=== PATIENT | female | born 1965 | race Caucasian/White ===

== ENCOUNTER → 2016-05-05 | Outpatient (CLI) | payer BC ==
--- NOTE | 2016-05-08 09:16 | MM ---
Reason for exam: screening (asymptomatic). Last mammogram was performed 1 year and 11 months ago. History: Patient is postmenopausal and had first child at age 33. Benign US right guided VAD of the right breast, September 17, 2009. Physical Findings: A clinical breast exam by your physician is recommended on an annual basis and results should be correlated with mammographic findings. MG Screening Mammo w CAD Bilateral CC and MLO view(s) were taken. Prior study comparison: June 15, 2014, bilateral MG screening mammo w CAD. March 20, 2013, bilateral digital screening mammo w/CAD. The breast tissue is heterogeneously dense. This may lower the sensitivity of mammography. There is no discrete abnormality. No significant changes when compared with prior studies. ASSESSMENT: Negative, BI-RAD 1 RECOMMENDATION: Routine screening mammogram of both breasts in 1 year.
== END | disposition home or self-care (01) ==
LOC: RADMAMWWP 09:22
PROVIDERS: ATTEND Family Medicine
DX: Z12.31 Encounter for screening mammogram for malignant neoplasm of breast (principal)

== ENCOUNTER → 2017-07-07 | Outpatient (CLI) | payer BC ==
--- NOTE | 2017-07-07 23:41 | XR ---
EXAMINATION TYPE: XR lumbar spine 2 or 3V DATE OF EXAM: 07/07/2017 CLINICAL HISTORY: Twisting injury with pain TECHNIQUE: Frontal and lateral images of the lumbar spine are obtained. COMPARISON: None FINDINGS: There are 5 lumbar type vertebral bodies identified. The lumbar spine shows satisfactory alignment without evidence of acute fracture or dislocation. Vertebral body heights are within normal limits. There is moderate to advanced disc space narrowing with endplate sclerosis L5-S1 level. The re is facet arthropathy lower lumbar levels. There is mild overlying vascular calcification noted. IMPRESSION: No acute fracture or dislocation is seen in the lumbar spine.
--- NOTE | 2017-07-07 23:43 | XR ---
EXAMINATION TYPE: XR cervical spine comp DATE OF EXAM: 07/07/2017 TECHNIQUE: Frontal, lateral, oblique, and open mouth view of the cervical spine are obtained. HISTORY: Cervicalgia lifting twisting injury. COMPARISON: None FINDINGS: The cervical spine is visualized in its entirety from C1 thru the top of T1 level, there i s reversal of normal cervical curvature without evidence of acute fracture or dislocation. The pre-v ertebral soft tissue appears within normal limits. The C1-C2 articulation is within normal limits on the open mouth view. Vertebral body heights are maintained. There is moderate to severe disc space n arrowing and mild spurring C4-C5 through C6-C7 levels. The oblique images are within normal limits. T he overlying soft tissues unremarkable. IMPRESSION: Loss of normal cervical curvature with moderate to advanced multilevel degenerative alvarez es C4-C5 through C6-C7 levels noted.
== END | disposition home or self-care (01) ==
LOC: RADXRMAIN 11:10
PROVIDERS: ATTEND Nurse Practitioner Family
DX: M47.812 Spondylosis without myelopathy or radiculopathy, cervical region (principal); M43.9 Deforming dorsopathy, unspecified; M54.5 Low back pain
CPT/HCPCS: 72050; 72100

== ENCOUNTER → 2017-07-17 | Outpatient (CLI) | payer OTHER ==
--- NOTE | 2017-07-17 12:27 | XR ---
EXAMINATION TYPE: XR Hip Complete RT DATE OF EXAM: 07/17/2017 CLINICAL HISTORY: Hip pain after lifting injury. TECHNIQUE: AP and frogleg views of the right hip are obtained. COMPARISON: None. FINDINGS: There is no acute fracture/dislocation evident in the right hip. There is mild to moderate axial joint space loss. There is mild to moderate subchondral cystic change in the acetabulum. The overlying soft tissue appears unremarkable. IMPRESSION: There is no acute fracture or dislocation in the right hip.
--- NOTE | 2017-07-17 12:28 | XR ---
EXAMINATION TYPE: XR thoracic spine 2V DATE OF EXAM: 07/17/2017 CLINICAL HISTORY: Lower back pain after lifting injury TECHNIQUE: Frontal, lateral, and swimmer's view of thoracic spine are obtained. COMPARISON: None. FINDINGS: Thoracic spine show satisfactory alignment without evidence of acute fracture or dislocatio n. Vertebral body heights and disc space heights are preserved. Visualized ribs are unremarkable viktor aterally. IMPRESSION: No acute fracture or dislocation is seen in the thoracic spine.
== END | disposition home or self-care (01) ==
LOC: RADXRMAIN 11:42
PROVIDERS: ATTEND Emergency Medicine
DX: R20.9 Unspecified disturbances of skin sensation (principal); M54.5 Low back pain; M54.14 Radiculopathy, thoracic region
CPT/HCPCS: 72070; 73502

== ENCOUNTER → 2017-12-05 | Outpatient (CLI) | payer OTHER ==
--- NOTE | 2017-12-05 12:48 | XR ---
EXAMINATION TYPE: XR foot complete bilateral DATE OF EXAM: 12/05/2017 CLINICAL HISTORY: Pain in particular right first toe and left third toe pain. TECHNIQUE: Frontal, lateral, and oblique images of the bilateral feet are obtained. COMPARISON: None FINDINGS: There is no acute fracture/dislocation evident in either foot. Hallux valgus positioning f irst metatarsophalangeal joint with advanced joint space loss as well as joint space sclerosis and mi ld marginal osteophyte formation is present in the right foot. Left foot shows less prominent hallux valgus positioning first metatarsophalangeal joint with moderate joint space loss and joint space sc lerosis. There is varus positioning and flexion of the fifth toe bilaterally. There is moderate size inferior calcaneal spur on the left and small size inferior calcaneal spur on the right. Mild dorsal surface spurring midfoot level left foot is present The overlying soft tissue appears unremarkable bi laterally. IMPRESSION: As above.
--- NOTE | 2017-12-05 12:49 | XR ---
EXAMINATION TYPE: XR lumbar spine 2 or 3V DATE OF EXAM: 12/05/2017 CLINICAL HISTORY: Low back pain after injury yesterday. TECHNIQUE: Frontal and lateral images of the lumbar spine are obtained. COMPARISON: Lumbar spine x-ray July 07, 2017 FINDINGS: There are 5 lumbar type vertebral bodies redemonstrated. The lumbar spine redemonstrates straightened alignment without evidence of acute fracture or dislocation. Vertebral body heights marisol in within normal limits. Moderate to advanced disc space narrowing L5-S1 level is again seen . Facet arthropathy lower lumbar levels is redemonstrated. The overlying soft tissue appears unremarkable. IMPRESSION: No acute fracture or dislocation is seen in the lumbar spine. No significant change from prior.
--- NOTE | 2017-12-05 12:51 | XR ---
EXAMINATION TYPE: XR cervical spine comp DATE OF EXAM: 12/05/2017 TECHNIQUE: Frontal, lateral, oblique, and open mouth view of the cervical spine are obtained. HISTORY: S13.4XXA strain injury with pain. COMPARISON: Cervical spine x-ray July 07, 2017 FINDINGS: The cervical spine is visualized in its entirety from C1 thru the top of T1 level, it rede monstrates reversal of normal cervical curvature without evidence of acute fracture or dislocation. T here is persistent grade 1 retrolisthesis of C4 on C5 and C5 on C6 and C6 on C7. The pre-vertebral so ft tissue appears within normal limits. The C1-C2 articulation is within normal limits on the open m outh view. Vertebral body heights are maintained. Moderate disc space narrowing and spurring C4-C5 th rough the C6-C7 levels is redemonstrated. The oblique images are within normal limits. Overlying soft tissue is unremarkable. IMPRESSION: No acute fracture or dislocation is seen in the cervical spine. No significant change fr om prior.
== END | disposition home or self-care (01) ==
LOC: RADXRMAIN 11:51
PROVIDERS: ATTEND Emergency Medicine
DX: S13.4XXA Sprain of ligaments of cervical spine, initial encounter (principal); S33.5XXA Sprain of ligaments of lumbar spine, initial encounter; M20.12 Hallux valgus (acquired), left foot; M20.11 Hallux valgus (acquired), right foot; M21.172 Varus deformity, not elsewhere classified, left ankle; M21.171 Varus deformity, not elsewhere classified, right ankle; M77.32 Calcaneal spur, left foot; M77.31 Calcaneal spur, right foot
CPT/HCPCS: 72050; 72100

== ENCOUNTER → 2017-12-11 | Outpatient (CLI) | payer OTHER ==
--- NOTE | 2017-12-11 13:21 | CT ---
EXAMINATION TYPE: CT brain wo con DATE OF EXAM: 12/11/2017 HISTORY: Headache. CT DLP: 1053.7 mGycm. Automated Exposure Control for Dose Reduction was Utilized. TECHNIQUE: CT scan of the head is performed without contrast. COMPARISON: CT brain August 25, 2015. FINDINGS: There is no acute intracranial hemorrhage or midline shift identified. Ventricles and sul ci are within normal limits in size for patient's age. Mosher-white matter differentiation is fairly we ll preserved. The globes are intact and the visualized sinuses are clear. IMPRESSION: No acute intracranial hemorrhage or midline shift. Unremarkable study.
--- NOTE | 2017-12-11 17:35 | XR ---
Right foot HISTORY: First digit pain, trauma 3 views of the right foot are submitted. There is marked degenerative change at the first metatarsophalangeal joint with joint space loss, hyp ertrophic change, subchondral sclerosis. Soft tissue swelling is noted. There is a plantar calcaneal spur. IMPRESSION: No fracture or dislocation. Osteoarthritis.
== END | disposition home or self-care (01) ==
LOC: RADCTMAIN 12:51
PROVIDERS: ATTEND Emergency Medicine
DX: G44.89 Other headache syndrome (principal); S90.31XD Contusion of right foot, subsequent encounter
CPT/HCPCS: 70450

== ENCOUNTER → 2018-01-30 | Outpatient (CLI) | payer BC ==
--- NOTE | 2018-01-30 15:55 | BD ---
EXAMINATION TYPE: Axial Bone Density DATE OF EXAM: 01/30/2018 COMPARISON: NONE CLINICAL HISTORY: post menopausal Height: 5'5 Weight: 173 FRAX RISK QUESTIONS: History of Fracture in Adulthood: y Secondary Osteoporosis: 3. Menopause before 45: y Current Tobacco Use: y RISK FACTORS HISTORY OF: Spine Fracture: When: 1994 History of Wrist Fracture: viktor When: 2007 Surgery to Spine/ When: 1994 Postmenopausal woman: y MEDICATIONS: Additional Medications: blood pressure, acid reflux, depression anxiety, asthma Additional History: EXAM MEASUREMENTS: Bone mineral densitometry was performed using the [employer]. Bone mineral density as measured about the Lumbar spine is: ----- L1-L4(G/cm2): 1.235 T Score Values are as follows: ----- L2: 0.0 ----- L3: 0.2 ----- L4: 1.0 ----- L1-L4: 0.5 Bone mineral density about the R hip (g/cm2): 1.043 Bone mineral density about the L hip (g/cm2): 1.025 T Score values are as follows: -----R Neck: 0.0 -----L Neck: -0.1 -----R Total: 0.7 -----L Total: 0.4 IMPRESSION: Normal (Values between +1 and -1 indicate normal bone mass). Consider repeating this study in 5 year s or sooner if there is some new clinical indication. NOTE: T-SCORE=SD OF THE YOUNG ADULT MEAN.
--- NOTE | 2018-01-31 14:35 | MM ---
Reason for exam: screening (asymptomatic). Last mammogram was performed 1 year and 9 months ago. History: Patient is postmenopausal and had first child at age 33. Benign US right guided VAD of the right breast, September 17, 2009. MG Screening Mammo w CAD Bilateral CC and MLO view(s) were taken. Prior study comparison: May 05, 2016, bilateral MG screening mammo w CAD. June 15, 2014, bilateral MG screening mammo w CAD. The breast tissue is heterogeneously dense. This may lower the sensitivity of mammography. No suspicious abnormality. Right biopsy marker noted. No significant new finding since most recent study. ASSESSMENT: Negative, BI-RAD 1 RECOMMENDATION: Routine screening mammogram of both breasts in 1 year.
== END | disposition home or self-care (01) ==
LOC: RADMAMWWP 07:05
PROVIDERS: ATTEND Family Medicine
DX: Z12.31 Encounter for screening mammogram for malignant neoplasm of breast (principal); N95.1 Menopausal and female climacteric states
CPT/HCPCS: 77067; 77080

== ENCOUNTER → 2018-12-04 | Outpatient (CLI) | payer BC ==
--- NOTE | 2018-12-04 12:53 | ECHOF ---
Referral Reason:R01.1 Cardiac murmur,I10 HTN MEASUREMENTS -------- HEIGHT: 165.1 cm WEIGHT: 74.8 kg BP: RVIDd: 3.2 cm (< 3.3) IVSd: 1.1 cm (0.6 - 1.1) LVIDd: 3.8 cm (3.9 - 5.3) LVPWd: 1.1 cm (0.6 - 1.1) IVSs: 1.4 cm LVIDs: 3.0 cm LVPWs: 1.3 cm LA Diam: 3.0 cm (2.7 - 3.8) LAESV Index (A-L): 20.11 ml/m Ao Diam: 3.0 cm (2.0 - 3.7) AV Cusp: 1.6 cm (1.5 - 2.6) LA Diam: 3.0 cm (2.7 - 3.8) MV EXCURSION: 14.967 mm (> 18.000) MV EF SLOPE: 58 mm/s (70 - 150) EPSS: 0.5 cm MV E Richard: 0.88 m/s MV A Richard: 0.96 m/s MV E/A Ratio: 0.92 RAP: 5.00 mmHg RVSP: 16.53 mmHg TAPSE: 2.36 cm FINDINGS -------- Sinus rhythm. This was a technically good study. The left ventricular size is normal. There is borderline concentric left ventricular hypertrophy. Overall left ventricular systolic function is normal with, an EF between 55 - 60 %. The diastolic filling pattern is normal for the age of the patient 14.53. The right ventricle is normal in size. Normal LA size by volume 22+/-6 ml/m2. The right atrial size is normal. There is mild aortic valve sclerosis. There is no evidence of aortic regurgitation. The mitral valve is normal. Mild mitral regurgitation is present. Mild tricuspid regurgitation present. There is no evidence of pulmonary hypertension. The right v entricular systolic pressure, as measured by Doppler, is 16.53mmHg. There is no pulmonic regurgitation present. The aortic root size is normal. There is no pericardial effusion. CONCLUSIONS -------- 1. Sinus rhythm. 2. This was a technically good study. 3. The left ventricular size is normal. 4. There is borderline concentric left ventricular hypertrophy. 5. Overall left ventricular systolic function is normal with, an EF between 55 - 60 %. 6. The diastolic filling pattern is normal for the age of the patient 14.53 7. Normal LA size by volume 22+/-6 ml/m2. 8. There is mild aortic valve sclerosis. 9. Mild mitral regurgitation is present. 10. Mild tricuspid regurgitation present. 11. There is no evidence of pulmonary hypertension. 12. There is no pulmonic regurgitation present. 13. The aortic root size is normal. 14. There is no pericardial effusion. TOW PICKER: Lisa Mcgowan RDCS
== END | disposition home or self-care (01) ==
LOC: RADECHMAIN 11:30
PROVIDERS: ATTEND Family Medicine
DX: I08.3 Combined rheumatic disorders of mitral, aortic and tricuspid valves (principal); I10 Essential (primary) hypertension
CPT/HCPCS: 93306

== ENCOUNTER 2021-04-05 08:43 | Day surgery (SDC) | payer BC ==
[2021-04-04 08:34] VITALS: BMI 23.3
[~2021-04-05 08:43] MED LIST: LACTATED RINGERS 1,000 ML IV SCH; LIDOCAINE 1% (10MG/ML) FOR IV START INTRADERMA PRN
[2021-04-05 09:03] VITALS: RESP 16; TEMP 97.4
[2021-04-05] MEDS ORDERED: PROPOFOL 10 MG/ML 20 ML VIAL IV ONE (09:20)
--- NOTE | 2021-04-05 09:22 | P.GSHP ---
History of Present Illness H&P Date: 04/05/21 Chief Complaint: Abnormal stool test 55-year-old female here for colonoscopy. Said she sent her stool and for testing and was told it was abnormal. She does not see any rectal bleeding. No family history of colon cancer. No bowel complaints. Past Medical History Past Medical History: Asthma, Hypertension History of Any Multi-Drug Resistant Organisms: None Reported Past Surgical History: Adenoidectomy, Back Surgery, Bladder Surgery, Hysterectomy, Tonsillectomy Additional Past Surgical History / Comment(s): bladder suspension Past Anesthesia/Blood Transfusion Reactions: Postoperative Nausea & Vomiting (PONV) Past Psychological History: Anxiety, Depression Smoking Status: Current every day smoker Past Alcohol Use History: None Reported Past Drug Use History: None Reported Medications and Allergies Home Medications Medication Instructions Recorded Confirmed Type Fluticasone/Salmeterol [Advair 1 inhalation PO RT-DAILY PRN 09/14/14 04/05/21 History 250-50 Diskus] Lisinopril [Prinivil] 40 mg PO DAILY 09/14/14 04/05/21 History Venlafaxine HCl ER [Effexor Xr] 150 mg PO DAILY 09/14/14 04/05/21 History Albuterol Sulfate [Proair Hfa] 2 puff INHALATION RT-Q6H PRN 08/25/15 04/05/21 History Cetirizine HCl [Zyrtec] 10 mg PO DAILY 04/04/21 04/05/21 History Methylphenidate HCl [Concerta] 27 mg PO DAILY 04/04/21 04/05/21 History traZODone HCL 50 mg PO HS 04/04/21 04/05/21 History Allergies Allergy/AdvReac Type Severity Reaction Status Date / Time cephalexin monohydrate Allergy Anaphylaxis Verified 04/04/21 08:27 [From Keflex] venom-honey bee Allergy Anaphylaxis Verified 04/04/21 08:27 [bee venom (honey bee)] Surgical - Exam Vital Signs Temp Pulse Resp BP Pulse Ox 97.4 F L 76 16 118/77 92 L 04/05/21 08:58 04/05/21 08:58 04/05/21 08:58 04/05/21 08:58 04/05/21 08:58 Physical exam: General: Well-developed, well-nourished HEENT: Normocephalic, sclerae nonicteric Abdomen: Nontender, nondistended Extremities: No edema Neuro: Alert and oriented Assessment and Plan (1) Abnormal stool test Narrative/Plan: Will proceed with colonoscopy Current Visit: Yes Status: Acute Code(s): R19.5 - OTHER FECAL ABNORMALITIES SNOMED Code(s): 076719769
--- NOTE | 2021-04-05 09:38 | P.PCN ---
Date of Procedure: 04/05/21 Procedure(s) Performed: PREOPERATIVE DIAGNOSIS: Abnormal stool test POSTOPERATIVE DIAGNOSIS: Diverticulosis, rectal polyp PROCEDURE: Colonoscopy with biopsy ANESTHESIA: [facility] [place] SURGEON: Porfirio Wilkinson M.D. SPECIMENS: Rectal polyp ENDOSCOPIC PROCEDURE: The patient was placed on the endoscopy table in the left decubitus position. The Olympus colonoscope was inserted into the anus and passed under direct visualization to the base of the cecum. The appendiceal orifice was visualized. From that point the scope was slowly withdrawn inspecting all surfaces carefully. There were no neoplastic inflammatory or polypoid lesions throughout the cecum, ascending, transverse, descending, and sigmoid colon. In the rectum there was noted to be a small polyp that was removed using the cold biopsy forceps. The remainder the rectum appeared normal. There was scattered diverticulosis in the left side of the colon. Digital rectal examination was normal. The patient was taken to the recovery room in stable condition per anesthesia guidelines. RECOMMENDATIONS: Resume diet. Await biopsy results.
[2021-04-05] MEDS ORDERED: IV FLUID CONTINUATION 1,000 ML IV ONE (09:39)
[2021-04-05 09:57] VITALS: BP 123/84; PULSE 65
== END 2021-04-05 10:08 | disposition home or self-care (01) ==
LOC: ORWHC2ENDO 08:43
PROVIDERS: ATTEND Surgery
DX: D12.8 Benign neoplasm of rectum (principal); K57.30 Diverticulosis of large intestine without perforation or abscess without bleeding; I10 Essential (primary) hypertension; J45.909 Unspecified asthma, uncomplicated; F17.210 Nicotine dependence, cigarettes, uncomplicated; F41.9 Anxiety disorder, unspecified; F32.A Depression, unspecified; Z90.710 Acquired absence of both cervix and uterus; Z98.890 Other specified postprocedural states; Z79.899 Other long term (current) drug therapy; Z88.1 Allergy status to other antibiotic agents; Z91.030 Bee allergy status
CPT/HCPCS: 88305; 45380; J2704

== ENCOUNTER → 2021-08-31 | Outpatient (CLI) | payer BC ==
--- NOTE | 2021-09-01 10:32 | USB ---
Reason for Exam: Clinical finding. Last mammogram was performed 1 year(s) and 10 month(s) ago. Indicated Problems: Lump or thickening. Patient History: Menarche at age 12. First Full-Term at age 33. Late child-bearing (after 31). Left ovary removed at age 49. Right ovary removed at age 49. Hysterectomy at age 49. Postmenopausal. Hormonal Contraceptives for 14 years from age 17 until age 31. 09/17/2009, Benign Core Biopsy on the right side. Risk Values: [place] 5 year model risk: 2.0%. NCI Lifetime model risk: 14.5%. Prior Study Comparison: 05/05/2016 Bilateral Screening Mammogram, [facility]. 01/30/2018 Bilateral Screening Mammogram, [facility]. 11/13/2019 Bilateral Screening Mammogram, [facility]. Tissue Density: The breast tissue is heterogeneously dense. This may lower the sensitivity of mammography. Findings: Analyzed By CAD. Mammogram Marker placed at level of palpable abnormality left breast posterior outer aspect. Biopsy clip right breast redemonstrated. Benign-appearing bilateral axillary lymph nodes redemonstrated. A palpable abnormality there is a 2.4 cm oval focal asymmetry in MLO view more prominent from prior studies, corresponding abnormality not clearly seen on cc view on background dense tissue. Findings: The area of palpable concern of the left breast, the axilla of the left breast and the retroareolar of the left breast were scanned. No suspicious focal mass at this level. Prominent focal tissue noted at palpable. Overall Assessment: Probably benign, BI-RAD 3 Assessment: MG 3D diag mammo w/cad SARAH - Bilateral: Probably benign, BI-RAD 3 - Left. US breast limited LT - Left: Probably benign, BI-RAD 3. Management: Diagnostic Mammogram of the left breast in 6 months. Diagnostic Breast Ultrasound of the left breast in 6 months. Clinical management. Surgical evaluation. Precautionary follow up diagnostic left breast mammogram and ultrasound in 6 months time. Electronically signed and approved by: Michael Levine M.D.
== END | disposition home or self-care (01) ==
LOC: RADMAMWWP 13:06
PROVIDERS: ATTEND Family Medicine
DX: R92.8 Other abnormal and inconclusive findings on diagnostic imaging of breast (principal); Z78.0 Asymptomatic menopausal state
CPT/HCPCS: 77062; 77066

== ENCOUNTER → 2021-09-06 | Outpatient (CLI) | payer BC ==
--- NOTE | 2021-09-06 09:24 | CTL ---
EXAMINATION TYPE: CT Low Dose Lung DATE OF EXAM ORDERED: 09/06/2021 HISTORY: Nicotine dependence. Lung cancer screening CT DLP: 79.[address] CTDI: 2.1 mGy Automated exposure control for dose reduction was used. SCREENING VISIT: Baseline COMPARISON: None available TECHNIQUE: Low dose computed tomography scan was performed through the chest at 1 mm thick sections a nd reconstructed images in multiple planes at 1 mm and [address] DIAGNOSTIC QUALITY: Satisfactory FINDINGS: LUNG NODULES: None. Right lung mixed density [address] image 63. Right lung solid [address] image 55. Left lung groundglass [address] image 19. Other multiple scattered smaller bilateral upper lobe faint and solid, branching and discrete nodules are noted, likely inflammatory/infectious in etiology. LUNGS: COPD: Severity: Mild Fibrosis: Severity: Minimal left apical Lymph nodes: No pathologically enlarged lymph nodes. Other findings: None RIGHT PLEURAL SPACE: Effusion: None Calcification: None Thickening: None Pneumothorax: None LEFT PLEURAL SPACE: Effusion: None Calcification: None Thickening: None Pneumothorax: None HEART: Heart Size: Normal Coronary Calcification: Mild Pericardial Effusion: None OTHER FINDINGS: Upper abdomen: None Bony thorax: No aggressive bone lesion. Supraclavicular region: None Other: Scattered arterial atherosclerotic calcifications. The ascending aorta measures 3.7 cm. IMPRESSION: Multiple bilateral upper lung lobe nodules measuring up to 3 mm as described above. No de finite suspicious lung lesion. CT LUNG RAD AND CT CHEST RECOMMENDATION: Lung-Rad 2 Benign Appearance or Behavior: Continue annual sc reening with LDCT in 12 months. S Modifier (other clinically significant findings): None
== END | disposition home or self-care (01) ==
LOC: RADCTMAIN 08:06
PROVIDERS: ATTEND Family Medicine
DX: Z12.2 Encounter for screening for malignant neoplasm of respiratory organs (principal); R91.8 Other nonspecific abnormal finding of lung field; Z87.891 Personal history of nicotine dependence
CPT/HCPCS: 71271

== ENCOUNTER → 2022-03-03 | Outpatient (CLI) | payer BC ==
--- NOTE | 2022-03-03 14:44 | MM ---
Reason for Exam: Additional evaluation requested from prior study. Last screening mammogram was performed 6 month(s) ago. Patient History: Menarche at age 12. First Full-Term at age 33. Late child-bearing (after 30). Left ovary removed at age 49. Right ovary removed at age 49. Hysterectomy at age 49. Postmenopausal. Hormonal Contraceptives for 14 years from age 17 until age 31. 09/17/2009, Benign Core Biopsy on the right side. Risk Values: [place] 5 year model risk: 2.1%. NCI Lifetime model risk: 14.2%. Prior Study Comparison: 01/30/2018 Bilateral Screening Mammogram, [facility]. 11/13/2019 Bilateral Screening Mammogram, [facility]. 08/31/2021 Bilateral MG 3D diag mammo w/cad SARAH, [facility]. Tissue Density: Left: The breast tissue is heterogeneously dense. This may lower the sensitivity of mammography. Findings: Analyzed By CAD. A few small benign-appearing round calcifications throughout the left breast are redemonstrated. Stable focal asymmetry area of concern upper outer aspect left breast. No enlarging masses. Stable benign left axillary lymph nodes. Overall Assessment: Benign, BI-RAD 2 Management: Screening Mammogram of both breasts in 6 months. Back on schedule. Results were given to the patient verbally at the time of exam. Electronically signed and approved by: Michael Levine M.D.
--- NOTE | 2022-03-03 15:44 | USB ---
Patient History: Menarche at age 12. First Full-Term at age 33. Late child-bearing (after 30). Left ovary removed at age 49. Right ovary removed at age 49. Hysterectomy at age 49. Postmenopausal. Hormonal Contraceptives for 14 years from age 17 until age 31. 09/17/2009, Benign Core Biopsy on the right side. Risk Values: [place] 5 year model risk: 2.1%. NCI Lifetime model risk: 14.2%. Technique: Method: Targeted. Prior Study Comparison: 01/30/2018 Bilateral Screening Mammogram, [facility]. 11/13/2019 Bilateral Screening Mammogram, [facility]. 08/31/2021 Bilateral MG 3D diag mammo w/cad SARAH, [facility]. Findings: The upper outer quadrant of the left breast, the axilla of the left breast and the retroareolar of the left breast were scanned. Targeted ultrasound left breast shows similar prominent tissue mimicking palpable abnormality grossly stable in size and appearance. No new solid or cystic mass or abnormal fluid collection is seen. Overall Assessment: Benign, BI-RAD 2 Management: Diagnostic Mammogram of both breasts in 6 months. Back on bilateral annual schedule. Results were given to the patient verbally at the time of exam. Electronically signed and approved by: Michael Levine M.D.
== END | disposition home or self-care (01) ==
LOC: RADMAMWWP 14:17
PROVIDERS: ATTEND Family Medicine
DX: R92.8 Other abnormal and inconclusive findings on diagnostic imaging of breast (principal); Z78.0 Asymptomatic menopausal state; Z90.721 Acquired absence of ovaries, unilateral
CPT/HCPCS: 77061; 77065